=== PATIENT | female | born 2000 | race Caucasian/White ===

== ENCOUNTER 2023-05-28 07:29 | Emergency (ER) | payer SELFPAY ==
[2023-05-28] MEDS ORDERED: Sodium Chloride 0.9% 2.5 ML Syringe FLUSH PRN (07:48)
[2023-05-28] MEDS ORDERED: Sodium Chloride 0.9% 10 ML Syringe FLUSH PRN (07:48)
[2023-05-28] MEDS ORDERED: Ondansetron 4 MG/2 ML SDV IVPUSH ONE (07:48)
[2023-05-28] MEDS ORDERED: Ketorolac 30 MG/ML SDV IVPUSH ONE (07:48)
[2023-05-28 08:02] LABS: APPEARANCE,URINE CLEAR; BILIRUBIN,URINE NEGATIVE (NEGATIVE); GLUCOSE,URINE NEGATIVE (NEGATIVE); KETONES,URINE TRACE mg/dL (NEGATIVE); LEUKOCYTE ESTERASE,URINE NEGATIVE (NEGATIVE); NITRITE,URINE NEGATIVE (NEGATIVE); OCCULT BLOOD,URINE NEGATIVE (NEGATIVE); PROTEIN,URINE NEGATIVE (NEGATIVE)
[2023-05-28 08:06] LABS: COLOR,URINE DARK YELLOW
[2023-05-28 08:26] LABS: HEMATOCRIT 40.7 % (37.0-47.0); HEMOGLOBIN 13.9 g/dL (12.0-16.0); MEAN CORPUSCULAR HEMOGLOBIN 32.1 pg (28.0-32.0); MEAN CORPUSCULAR HGB CONC 34.2 g/dL (32.0-36.0); MEAN PLATELET VOLUME 10.1 fL (9.4-12.3); PLATELET COUNT,PLT 347 K/uL (150-400); RED BLOOD CELL COUNT 4.33 M/uL (4.10-5.30); WHITE BLOOD CELL COUNT,WBC 25.65 K/uL (3.9-11.3)
[2023-05-28 08:51] LABS: A/G RATIO 0.8 (0.9-1.6); ALBUMIN 3.6 g/dL (3.4-5.0); BILIRUBIN TOTAL 0.5 mg/dL (0.2-1.0); CALCIUM 9.1 mg/dL (8.5-10.1); CARBON DIOXIDE,CO2 21.6 mmol/L (21.0-32.0); EST CRCL DRUG DOSING (CG) 69.2 mL/min; POTASSIUM,K 3.9 mmol/L (3.5-5.1); PROTEIN TOTAL,TP 8.3 g/dL (6.4-8.2)
[2023-05-28] MEDS: fentaNYL 50 MCG/ML SDV IVPUSH ONE ×2 (09:19→09:25)
[2023-05-28 09:20] LABS: LYMPHOCYTES PERCENT MAN 7 % (24-44); MONOCYTES ABSOLUTE MAN 2.05 K/uL (0.00-0.80); MONOCYTES PERCENT MAN 8 % (0-8); SEG NEUTROPHILS PERCENT MAN 85 % (41-71)
[2023-05-28] MEDS ORDERED: Iopamidol 755 Mg/ML 100 ML Bottle IVPUSH STA (09:38)
[2023-05-28] MEDS ORDERED: Acetaminophen 325 MG Tab PO ONE (09:55)
[2023-05-28] MEDS ORDERED: Acetaminophen 500 MG Tab PO ONE (10:15)
== END 2023-05-28 11:14 | disposition home or self-care (01) ==
LOC: MW.ED 07:29
DX: R10.31 Right lower quadrant pain (principal); R05.1 Acute cough; Z88.0 Allergy status to penicillin
CPT/HCPCS: 36415; 74177; 80053; 81003; 81025; 85025; 96374; 96375; 99284; A9270; J1885; J2405; J3490; 99285; J3010

== ENCOUNTER 2023-10-01 18:54 | Emergency (ER) | payer MEDICAID | END 2023-10-01 20:07 | disposition home or self-care (01) | LOC: MW.ED 18:54 | DX: J40 Bronchitis, not specified as acute or chronic (principal); Z75.8 Other problems related to medical facilities and other health care; Z88.0 Allergy status to penicillin; Z95.1 Presence of aortocoronary bypass graft; Z79.899 Other long term (current) drug therapy | CPT/HCPCS: 71045; 71045-26; 93005; 93010; 99283; 99284 ==

== ENCOUNTER 2023-10-23 02:09 | Emergency (ER) | payer MEDICAID ==
[2023-10-23] MEDS: diphenhydrAMINE 50 MG/ML SDV IVPUSH ONE (02:28)
[2023-10-23] MEDS: methylPREDNISolone Sodium Succinate 125 MG/2 ML SDV IVPUSH ONE (02:28)
[2023-10-23] MEDS: Famotidine 20 MG/2 ML SDV IVPUSH ONE (02:28)
[2023-10-23] MEDS: EPINEPHrine 1 MG/1 ML Amp SUBCUT ONE (02:49)
[2023-10-23 02:56] LABS: BASOPHILS PERCENT AUTO 0.7 % (0.0-1.0); EOSINOPHILS ABSOLUTE AUTO 1.17 K/uL (0.00-0.45); EOSINOPHILS PERCENT AUTO 8.3 % (0.0-6.0); HEMATOCRIT 40.4 % (37.0-47.0); HEMOGLOBIN 13.3 g/dL (12.0-16.0); IMMATURE GRAN ABSOLUTE AUTO 0.06 K/uL (0.00-0.05); IMMATURE GRAN PERCENT AUTO 0.4 % (0.0-0.4); LYMPHOCYTES ABSOLUTE AUTO 3.35 K/uL (1.00-4.80); LYMPHOCYTES PERCENT AUTO 23.8 % (24.0-44.0); MEAN CORPUSCULAR HEMOGLOBIN 30.6 pg (28.0-32.0); MEAN CORPUSCULAR HGB CONC 32.9 g/dL (32.0-36.0); MEAN CORPUSCULAR VOLUME 93.1 fL (83.0-99.0); MEAN PLATELET VOLUME 10.4 fL (9.4-12.3); MONOCYTES ABSOLUTE AUTO 0.98 K/uL (0.00-0.80); NEUTROPHILS ABSOLUTE AUTO 8.44 K/uL (1.80-7.70); NEUTROPHILS PERCENT AUTO 59.8 % (41.0-71.0); PLATELET COUNT,PLT 383 K/uL (150-400); RED BLOOD CELL COUNT 4.34 M/uL (4.10-5.30)
[2023-10-23 04:09] LABS: A/G RATIO 0.8 (0.9-1.6); ALBUMIN 3.4 g/dL (3.4-5.0); BILIRUBIN TOTAL 0.1 mg/dL (0.2-1.0); CALCIUM 8.8 mg/dL (8.5-10.1); CARBON DIOXIDE,CO2 26.2 mmol/L (21.0-32.0); EST CRCL DRUG DOSING (CG) 69.2 mL/min; PROTEIN TOTAL,TP 7.7 g/dL (6.4-8.2)
== END 2023-10-23 05:42 | disposition home or self-care (01) ==
LOC: MW.ED 02:09
DX: T78.1XXA Other adverse food reactions, not elsewhere classified, initial encounter (principal); R07.89 Other chest pain; J45.909 Unspecified asthma, uncomplicated; Z88.0 Allergy status to penicillin; Z79.51 Long term (current) use of inhaled steroids; Z79.899 Other long term (current) drug therapy
CPT/HCPCS: 36415; 71045; 80053; 84484; 85025; 93005; 96372; 96374; 96375; 99285; J0171; J1200; J2919; J3490; 93010; 99284

== ENCOUNTER 2023-12-11 14:59 | Emergency (ER) | payer MEDICAID, OTHER ==
[2023-12-11] MEDS: Diphtheria,Pertussis(Acell),Tetanus Vaccine 0.5 ML Syringe IM ONE (16:30)
== END 2023-12-11 16:53 | disposition home or self-care (01) ==
LOC: MW.ED 14:59
DX: S61.012A Laceration without foreign body of left thumb without damage to nail, initial encounter (principal); Z23 Encounter for immunization; Z88.0 Allergy status to penicillin; Z75.8 Other problems related to medical facilities and other health care; W26.0XXA Contact with knife, initial encounter
CPT/HCPCS: 12001; 90471; 90715; 99282-25; 99283